=== PATIENT | female | born 1985 | race Caucasian/White ===

== ENCOUNTER → 2017-04-25 | Outpatient (CLI) | payer BC ==
--- NOTE | 2017-05-04 13:06 | HM ---
HOLTER MONITOR REPORT 48 HOUR HOLTER: There was no diary provided with the recording. Predominant rhythm appears to be sinus with a heart rate range of 45 to 170 beats per minute, with average heart rate of 86 beats per minute. There is evidence of some sinus arrhythmia. Rare isolated PACs and PVCs without any runs of SVT, VT or bradyarrhythmia. Sinus tachycardia was noted at about 9:40 am on day 2 and no diary was provided and therefore, I cannot correlate any activity. FINAL IMPRESSION: Predominantly sinus with sinus arrhythmia and sinus tachycardia. No diary was provided. No significant tachy or bradyarrhythmias were noted. MMODL / IJN: [id number] /
== END | disposition home or self-care (01) ==
LOC: RADECHMAIN 13:04
PROVIDERS: ATTEND Internal Medicine
DX: I49.9 Cardiac arrhythmia, unspecified (principal); R00.0 Tachycardia, unspecified
CPT/HCPCS: 93225; 93226